=== PATIENT | female | born 1955 ===

== ENCOUNTER 2018-12-26 10:07 | Day surgery (SDC) | payer MEDICARE, OTHER ==
--- NOTE | 2018-12-23 22:50 | CONS ---
DATE OF ADMISSION: 12/26/2018 DATE OF CONSULTATION: 12/26/2018 TYPE OF CONSULTATION: Preoperative gastroenterology. Dear Dr. Pinon: I thank you very much for this kind referral. Ms. Nelsy lee is a 53-year-old female patient who has been referred to me for further evaluation of change in the bowel habit. No past history of colon neoplasm. The patient never had screening colonoscopy. Appetite is good. No weight loss. N o upper abdominal pain. Not on nonsteroidal anti-inflammatory agents. No history of gallstones or l iver disease. She has high blood pressure, not a diabetic. No heart disease, lung problem or kidney disease. Status post surgery for thyroid cancer and she is hypothyroid. She had sections. SOCIAL HISTORY: Nonsmoker. No alcohol abuse. FAMILY HISTORY: No family history of gastrointestinal tract neoplasm. ALLERGIES: NO DRUG ALLERGIES. MEDICATIONS: 1. Losartan. 2. Synthroid. PHYSICAL EXAMINATION: VITAL SIGNS: She is 5 feet 1 inch tall and weighs 152 pounds. HEART: Normal heart sounds. LUNGS: Clear. ABDOMEN: Soft, no masses. Normal bowel sounds. NEUROLOGIC: Normal neurological exam. IMPRESSION: 1. Change in the bowel habit. 2. The patient never had screening colonoscopy. 3. Hypertension. 4. Status post surgery for thyroid cancer. The patient is on levothyroxine. 5. Status post section. PLAN: Screening colonoscopy. The procedure and possible complications are well explained to the patient. She understands and cons ents to the procedure. I thank you once again. With warmest personal regards, Dictated By: MATT PLATA/MELVA Conf#: [id number] DID#: [id number]
[~2018-12-26] VITALS: Ht 157.5 cm; Wt 58.8 kg
[2018-12-26 10:57] VITALS: Ht 157.5 cm; Wt 58.8 kg
--- NOTE | 2018-12-26 11:06 | PREAC ---
Date/Time of Note Date/Time of Note DATE: 12/26/18 TIME: 11:04 Anesthesia Eval and Record Evaluation Time Pre-Procedure Interview DATE: 12/26/18 TIME: 11:04 Age 63 Sex female NPO: 8 hrs Preoperative diagnosis Reflux, Abominal Pain Planned procedure EGD, Colonoscopy Past Medical History Past Medical History: Includes Cardio: HTN, Dyslipidemia Neuro: CVA Musculoskeletal: Osteoarthritis GI: GERD Surgery & Anesthesia Issues No known issue Meds Anticoagulation: No Beta Rob within 24 hr: No Reason Beta Rob not given: Pt. not on B-Rob Meds reviewed: Yes Allergies Allergies Reviewed: Yes Labs/Studies Labs Reviewed: Reviewed by anesthesiologist test: N/A Pre-procedure Exam Airway: Adequate mouth opening Mallampati: Mallampati II Teeth: Normal Lung: Normal Heart: Normal ASA Physical Status ASA physical status: 2 Emergency: None Planned Anesthetic General/MAC: MAC Pre-operative Attestations Prior to commencing anesthesia and surgery, the patient was re-evaluated, there was verification of: *The patient's identity *The results of appropriate recent lab work and preoperative vital signs *The above evaluation not changing prior to induction *Anesthetic plan, risk benefits, alternative and complications discussed with patient/family; questions answered; patient/family understands, accepts and wishes to proceed. TERRENCE VALLE MD Dec 26, 2018 11:06
[2018-12-26] MEDS ORDERED: PROPOFOL 60 ML ONE (11:08)
[2018-12-26] MEDS ORDERED: OMEPRAZOLE PO (11:19)
[2018-12-26] MEDS ORDERED: LOSA25TA12 PO (11:19)
[2018-12-26 11:30] VITALS: BP 137/63; PULSE 63; RESP 20
--- NOTE | 2018-12-26 12:29 | PAC ---
Date/Time of Note Date/Time of Note DATE: 12/26/18 TIME: 12:28 Post-Anesthesia Notes Post-Anesthesia Note Last documented vital signs VSS Activity: WNL Respiratory function: WNL Cardiovascular function: WNL Mental status: Baseline Pain reasonably controlled: Yes Hydration appropriate: Yes Nausea/Vomiting absent: Yes TERRENCE VALLE MD Dec 26, 2018 12:29
[2018-12-26 12:43] VITALS: BP 138/70; RESP 20
== END 2018-12-26 12:52 | disposition home or self-care (01) ==
LOC: GIL 10:07
PROVIDERS: ATTEND Internal Medicine Gastroenterology
DX: Z12.11 Encounter for screening for malignant neoplasm of colon (principal); K64.8 Other hemorrhoids; K57.30 Diverticulosis of large intestine without perforation or abscess without bleeding; D12.6 Benign neoplasm of colon, unspecified; K44.9 Diaphragmatic hernia without obstruction or gangrene; K21.0 Gastro-esophageal reflux disease with esophagitis; I10 Essential (primary) hypertension
CPT/HCPCS: 88305; 88312